=== PATIENT | female | born 1990 | race Caucasian/White ===

== ENCOUNTER 2017-08-16 20:50 | Emergency (ER) | payer OTHER ==
[~2017-08-16] VITALS: Ht 167.6 cm; Wt 56.8 kg
[2017-08-16] MEDS ORDERED: AMOXICILLIN500 MG PO (21:15)
[2017-08-16] MEDS ORDERED: FLONASE16 G1 BOTH NARES (21:16)
[2017-08-16] MEDS ORDERED: MUCINEX D ER T1 EACH PO (21:16)
[2017-08-16] MEDS ORDERED: ZYRTEC10 M3 PO (21:22)
[2017-08-16 21:37] VITALS: BP 00/0
== END 2017-08-16 21:45 | disposition home or self-care (01) ==
LOC: EME 20:50
DX: J01.90 Acute sinusitis, unspecified (principal); H66.92 Otitis media, unspecified, left ear; F17.200 Nicotine dependence, unspecified, uncomplicated
CPT/HCPCS: 99281; 99284